=== PATIENT | female | born 1990 | race Caucasian/White ===

== ENCOUNTER 2016-12-20 16:11 | Emergency (ER) | payer OTHER ==
[2016-12-20] MEDS ORDERED: SODIUM CHLORIDE 0.9% 1,000 ML IV STA (16:30)
--- NOTE | 2016-12-20 16:48 | ED ---
Female Urogenital HPI - General Chief complaint: Vaginal Bleeding Stated complaint: Vaginal Bleeding Time Seen by Provider: 12/20/16 16:20 Source: patient, RN notes reviewed Mode of arrival: ambulatory Limitations: no limitations - History of Present Illness Initial comments: 26-year-old female presents to the emergency department with a chief complaint of vaginal bleeding. Patient had a harrison IUD placed on the third. Patient states that she started menstrual cycle yesterday. Patient states today she is passing large clots. Patient states she is having some abdominal cramping with this. Patient states that she called her OB/GYNs office and they referred her here due to the fact that she does have a little lightheadedness. Patient states she normally has regular menstrual cycles. Patient states this seems heavier so she was concerned. Patient denies any recent fever, chills, shortness of breath, chest pain, back pain, nausea vomiting, numbness or tingling, dysuria or hematuria, constipation or diarrhea, headaches or visual changes, or any other current symptoms. Last Menstrual Period: 12/17/16 - Related Data Home Medications Medication Instructions Recorded Confirmed Fluticasone Nasal [place] [Flonase 1 spray EA NOSTRIL DAILY PRN 12/20/16 12/20/16 Nasal [place]] Loratadine [Claritin] 10 mg PO DAILY PRN 12/20/16 12/20/16 Allergies Allergy/AdvReac Type Severity Reaction Status Date / Time No Known Allergies Allergy Verified 12/20/16 16:53 Review of Systems ROS Statement: Those systems with pertinent positive or pertinent negative responses have been documented in the HPI. ROS Other: All systems not noted in ROS Statement are negative. Past Medical History Past Medical History: Asthma Additional Past Medical History / Comment(s): ovarian cyst(s) History of Any Multi-Drug Resistant Organisms: None Reported Past Surgical History: No Surgical Hx Reported Past Psychological History: Anxiety Smoking Status: Current every day smoker Past Alcohol Use History: Occasional Past Drug Use History: Marijuana General Exam Limitations: no limitations General appearance: alert, in no apparent distress Head exam: Present: atraumatic, normocephalic, normal inspection ENT exam: Present: normal exam, mucous membranes moist Neck exam: Present: normal inspection. Absent: tenderness, meningismus, lymphadenopathy Respiratory exam: Present: normal lung sounds bilaterally. Absent: respiratory distress, wheezes, rales, rhonchi, stridor Cardiovascular Exam: Present: regular rate, normal rhythm, normal heart sounds. Absent: systolic murmur, diastolic murmur, rubs, gallop, clicks Neurological exam: Present: alert, oriented X3, CN II-XII intact. Absent: motor sensory deficit Psychiatric exam: Present: normal affect, normal mood Skin exam: Present: warm, dry, intact, normal color. Absent: rash Course Vital Signs 12/20/16 12/20/16 12/20/16 16:15 16:28 17:01 Temperature 97.4 F L 97.5 F L Pulse Rate 70 68 Pulse Rate [ 67 Left Sitting Pulse Oximetery ] Pulse Rate [ 71 Left Standing Pulse Oximetery ] Pulse Rate [ 62 Left Supine Pulse Oximetery ] Respiratory 16 20 Rate Blood Pressure 148/88 123/81 Blood Pressure 132/88 [Left Arm Sitting] Blood Pressure 123/79 [Left Arm Standing] Blood Pressure 129/80 [Left Arm Supine] O2 Sat by Pulse 99 97 Oximetry Medical Decision Making - Medical Decision Making 26-year-old female presents emergency Department with a chief complaint of vaginal bleeding. At this time patient's hemoglobin is stable. Orthostatics are stable. Patient is feeling better in the room. Patient did receive a bolus of fluids. We did discuss follow-up with [facility]. Discussed return parameters. Patient stated that she understood all her questions have been answered. She will be discharged. - Lab Data Result diagrams: 12/20/16 16:40 Lab Results 12/20/16 12/20/16 12/20/16 Range/Units 16:40 16:40 16:40 WBC 8.0 (3.8-10.6) k/uL RBC 4.58 (3.80-5.40) m/uL Hgb 14.5 (11.4-16.0) gm/dL Hct 42.2 (34.0-46.0) % MCV 92.2 (80.0-100.0) fL MCH 31.6 (25.0-35.0) pg MCHC 34.3 (31.0-37.0) g/dL RDW 12.0 (11.5-15.5) % Plt Count 214 (150-450) k/uL Neutrophils % 67 % Lymphocytes % 23 % Monocytes % 5 % Eosinophils % 2 % Basophils % 1 % Neutrophils # 5.4 (1.3-7.7) k/uL Lymphocytes # 1.9 (1.0-4.8) k/uL Monocytes # 0.4 (0-1.0) k/uL Eosinophils # 0.2 (0-0.7) k/uL Basophils # 0.0 (0-0.2) k/uL Urine Color Colorless Urine Appearance Clear (Clear) Urine pH 6.0 (5.0-8.0) Ur Specific [place] 1.001 (1.001-1.035) Urine Protein Negative (Negative) Urine Glucose (UA) Negative (Negative) Urine Ketones Negative (Negative) Urine Blood Moderate H (Negative) Urine Nitrate Negative (Negative) Urine Bilirubin Negative (Negative) Urine Urobilinogen <2.0 (<2.0) mg/dL Ur Leukocyte Esterase Negative (Negative) Urine RBC <1 (0-5) /hpf Ur Squamous Epith Cells <1 (0-4) /hpf Urine HCG, Qual Not Detected (Not Detectd) Disposition Clinical Impression: Menorrhagia Disposition: HOME SELF-CARE Condition: Stable Instructions: Menstruation (ED) Additional Instructions: Please use medication as discussed. Please follow up with family doctor if symptoms have not improved over the next two days. Please return to the emergency room if your symptoms increase or worsen or for any other concerns. Referrals: Sandip Bryant MD [Primary Care Provider] - 1-2 days Time of Disposition: 17:23
[2016-12-20 17:09] LABS: Basophils % (A) 1 %; CHCM 34.9; Eosinophils # (A) 0.2 k/uL (0-0.7); Eosinophils % (A) 2 %; HCT 42.2 % (34.0-46.0); HGB 14.5 gm/dL (11.4-16.0); Luc % (Auto) 2; Lymphocytes # (A) 1.9 k/uL (1.0-4.8); Lymphocytes % (A) 23 %; MCH 31.6 pg (25.0-35.0); MCHC 34.3 g/dL (31.0-37.0); MCV 92.2 fL (80.0-100.0); Mean Platelet Volume 8.2; Monocytes # (A) 0.4 k/uL (0-1.0); Monocytes % (A) 5 %; Neutrophils # (A) 5.4 k/uL (1.3-7.7); Neutrophils % (A) 67 %; RBC 4.58 m/uL (3.80-5.40); WBC (Perox) 8.03
[2016-12-20 17:18] LABS: Appearance,Urine Clear (Clear); Bilirubin,Urine Negative (Negative); Glucose,Urine (UA) Negative (Negative); Ketones,Urine Negative (Negative); Leukocyte Esterase,Urine Negative (Negative); Nitrite,Urine Negative (Negative); Particle Count 359; Protein,Urine Negative (Negative); RBC,Urine <1 /hpf (0-5); Specific Gravity,Urine 1.001 (1.001-1.035); Squamous Epithelial Cell,Urine <1 /hpf (0-4); UA Billing (MACRO vs. MICRO) MICRO; Urobilinogen,Urine <2.0 mg/dL (<2.0)
[2016-12-20 17:38] VITALS: BP 135/84; PULSE 100; RESP 12; TEMP 98
== END 2016-12-20 17:50 | disposition home or self-care (01) ==
LOC: EC 16:11
DX: N92.0 Excessive and frequent menstruation with regular cycle (principal); J45.909 Unspecified asthma, uncomplicated; F17.200 Nicotine dependence, unspecified, uncomplicated
CPT/HCPCS: 36415; 81001; 81025; 85025; 87070; 87205; 87491; 87591; 87808; 99284

== ENCOUNTER → 2017-03-19 | Outpatient (CLI) | payer OTHER ==
--- NOTE | 2017-03-20 07:55 | US ---
EXAMINATION TYPE: US pelvic complete DATE OF EXAM: 03/19/2017 2:28 PM COMPARISON: NONE CLINICAL HISTORY: Z97.5 IUD placement. TECHNIQUE: TA Date of LMP: 03/04/2017 EXAM MEASUREMENTS: Uterus: 10.0 x 5.6 x 4.6 cm Endometrial Stripe: 0.9 cm Right Ovary: 4.0 x 3.2 x 2.2 cm Left Ovary: 3.4 x 1.9 x 1.6 cm Follicles are noted on the ovaries. 1. Uterus: Anteverted wnl 2. Endometrium: IUD in place, wnl 3. Right Ovary: wnl 4. Left Ovary: wnl 5. Bilateral Adnexa: wnl 6. Posterior cul-de-sac: wnl IMPRESSION: 1. Normal pelvic ultrasound. 2. IUD within the endometrial canal.
== END | disposition home or self-care (01) ==
LOC: RADUSWWP 14:10
PROVIDERS: ATTEND Obstetrics & Gynecology
DX: Z97.5 Presence of (intrauterine) contraceptive device (principal)
CPT/HCPCS: 76856